=== PATIENT | female | born 1970 | race Caucasian/White ===

== ENCOUNTER 2018-04-10 21:55 | Emergency (ER) | payer MEDICAID ==
[~2018-04-10] VITALS: Ht 172.7 cm; Wt 70.5 kg
[2018-04-10 22:09] VITALS: BP 112/78; Ht 172.7 cm; Wt 70.5 kg
== END 2018-04-10 22:30 | disposition left against medical advice (07) ==
LOC: D.ER 21:55
DX: R19.7 Diarrhea, unspecified (principal)

== ENCOUNTER 2018-04-18 04:41 | Emergency (ER) | payer MEDICAID ==
[~2018-04-18] VITALS: Ht 172.7 cm; Wt 75.0 kg
[2018-04-18 04:45] VITALS: Ht 172.7 cm; Wt 75.0 kg
[2018-04-18] MEDS ORDERED: FLAGYL500 MG PO (04:46)
[2018-04-18 05:16] LABS: APPEARANCE CLEAR (CLEAR); BILIRUBIN NEGATIVE (NEGATIVE); COLOR YELLOW (YELLOW); GLUCOSE NEGATIVE (NEGATIVE); KETONE NEGATIVE (NEGATIVE); NITRITE NEGATIVE (NEGATIVE); PROTEIN NEGATIVE (NEGATIVE); SPECIFIC GRAVITY 1.015 (1.005-1.020); UROBILINOGEN NORMAL (NORMAL)
[2018-04-18 05:20] LABS: BASOPHILS 0.3 % (0-2); EOSINOPHILS 3.2 % (0-7); HEMATOCRIT 47.5 % (36.0-48.0); HEMOGLOBIN 16.4 g/dL (12-16); IMMATURE GRANULOCYTES 0.5 % (0-5); LYMPHOCYTES 23.7 % (15-50); MCH 31.4 pg (26.0-34.0); MCHC 34.5 g/dL (31.0-37.0); MEAN PLATELET VOLUME 9.9 fL (7.4-10.4); MONOCYTES 10.1 % (2-11); NEUTROPHILS 62.2 % (40-80); PLATELET COUNT 295 10x3/uL (130-400); RBC 5.22 10x6/uL (4.00-5.40); WBC 14.7 10x3/uL (4.8-10.8)
[2018-04-18 05:30] LABS: ALBUMIN 2.4 g/dL (3.4-5.0); ALKALINE PHOSPHATASE 62 U/L (46-116); ALT (SGPT) 35 U/L (10-68); BILIRUBIN - TOTAL 0.31 mg/dL (0.2-1.3); CALC OSMOLALITY 276 mosm/kg (275-300); CALCIUM 7.6 mg/dL (8.5-10.1); CARBON DIOXIDE 30.2 mmol/L (21.0-32.0); CHLORIDE - SERUM 105 mmol/L (98-107); CREATININE - SERUM 0.7 mg/dL (0.6-1.3); GLUCOSE 94 mg/dL (74-106); POTASSIUM - SERUM 3.8 mmol/L (3.5-5.1); SODIUM 140 mmol/L (136-145); UREA NITROGEN 8 mg/dL (7-18); eGFR NON AFRICAN AMERICAN > 90 mL/min (90-120)
[2018-04-18 05:34] LABS: AMYLASE - SERUM 49 U/L (25-115); LIPASE 86 U/L (73-393)
[2018-04-18 05:36] LABS: TROPONIN-I < 0.017 ng/mL (0.000-0.060)
[2018-04-18] MEDS ORDERED: CIPRO500 MG PO (09:33)
[2018-04-18 10:02] VITALS: BP 106/67
[2018-04-23 03:09] LABS: OVA + PARASITE EXAM Final report (())
== END 2018-04-18 10:00 | disposition home or self-care (01) ==
LOC: D.ER 04:41
PROVIDERS: Family Medicine
DX: R19.7 Diarrhea, unspecified (principal); F17.200 Nicotine dependence, unspecified, uncomplicated

== ENCOUNTER 2020-01-03 02:45 | Emergency (ER) | payer OTHER ==
[~2020-01-03] VITALS: Ht 172.7 cm; Wt 77.3 kg
[~2020-01-03 02:45] MED LIST: CIPRO500 MG PO; FLAGYL500 MG PO
[2020-01-03 02:47] VITALS: Ht 172.7 cm; Wt 77.3 kg
[2020-01-03 03:13] LABS: HCG URINE NEGATIVE (NEGATIVE)
[2020-01-03 03:26] LABS: ANION GAP 10.1 mmol/L (8-16); CALCIUM 8.7 mg/dL (8.5-10.1); CARBON DIOXIDE 24.3 mmol/L (21.0-32.0); POTASSIUM - SERUM 4.4 mmol/L (3.5-5.1)
[2020-01-03 03:30] LABS: BASOPHILS 0.4 % (0-2); EOSINOPHILS 1.8 % (0-7); HEMATOCRIT 44.9 % (36.0-48.0); HEMOGLOBIN 15.3 g/dL (12-16); IMMATURE GRANULOCYTES 0.2 % (0-5); LYMPHOCYTES 21.8 % (15-50); MCHC 34.1 g/dL (31.0-37.0); MCV 93.9 fL (80.0-100.0); MEAN PLATELET VOLUME 11.3 fL (7.4-10.4); MONOCYTES 10.5 % (2-11); NEUTROPHILS 65.3 % (40-80); PLATELET COUNT 165 10x3/uL (130-400); RBC 4.78 10x6/uL (4.00-5.40); RDW 12.7 % (11.5-14.5); WBC 14.2 10x3/uL (4.8-10.8)
[2020-01-03 03:30] LABS: BILIRUBIN NEGATIVE (NEGATIVE); EPITHELIAL CELLS 0-5 /hpf (0-5); KETONE NEGATIVE (NEGATIVE); NITRITE NEGATIVE (NEGATIVE); UROBILINOGEN NORMAL mg/dL (< 2); WHITE CELLS - URINE 0-5 HPF (0-4)
[2020-01-03 03:32] LABS: ALBUMIN 3.4 g/dL (3.4-5.0); BILIRUBIN - TOTAL 0.23 mg/dL (0.2-1.3); PROTEIN - SERUM 6.8 g/dL (6.4-8.2)
[2020-01-03] MEDS ORDERED: FLOMAX0.4 MG PO (06:33)
[2020-01-03] MEDS ORDERED: NORCO 7.5-3251 EACH GT (06:33)
[2020-01-03 07:21] VITALS: BP 109/63
== END 2020-01-03 07:21 | disposition home or self-care (01) ==
LOC: D.ER 02:45
PROVIDERS: Emergency Medicine
DX: N20.1 Calculus of ureter (principal); R10.9 Unspecified abdominal pain